=== PATIENT | female | born 1975 | race Caucasian/White ===

== ENCOUNTER 2023-06-10 18:03 | Emergency (ER) | payer OTHER, SELFPAY ==
[2023-06-10 18:13] VITALS: BP 133/58; PULSE 64; RESP 18; TEMP 36.9; O2SAT 97; BMI 22.8
--- NOTE | 2023-06-10 19:04 | DI.RAD.S_ITS ---
PROCEDURE: XR FACIAL BONES MIN 3V INDICATIONS: Tenderness over left zygomatic TECHNIQUE: 4 views of the facial bones were acquired. COMPARISON: None. FINDINGS: Sinuses: Visualized sinuses demonstrate no air-fluid levels or mucosal thickening. Bones: No acute displaced fractures. No suspicious bony lesions. Orbital rims and zygomatic arches appear intact. Soft tissues: No suspicious soft tissue densities. IMPRESSION: No radiographic abnormality. If there is continued clinical concern for facial fracture recommend cross-sectional imaging with CT maxillofacial study. Dictated by: Lorie Howe M.D. on 06/10/2023 at 20:53 Approved by: Lorie Howe M.D. on 06/10/2023 at 20:55
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
[2023-06-10 20:00] VITALS: BP 126/58; PULSE 61; RESP 16; O2SAT 95
[2023-06-10 21:08] VITALS: BP 110/64; PULSE 62; RESP 16; O2SAT 96
[2023-06-10] MEDS: ACETAMINOPHEN 325 MG TABLET PO (21:09)
== END 2023-06-10 21:19 | disposition home or self-care (01) ==
PROVIDERS: Emergency Provider Physician Assistant
DX: S00.93XA Contusion of unspecified part of head, initial encounter (principal); S01.81XA Laceration without foreign body of other part of head, initial encounter; W22.8XXA Striking against or struck by other objects, initial encounter
CPT/HCPCS: 70150; 99283